=== PATIENT | female | born 1970 | race Caucasian/White ===

== ENCOUNTER 2018-06-12 13:33 | Observation (INO) ==
[~2018-06-12 13:33] MED LIST: Bupivacaine/Epinephrine PF Inj 0.5% 30 ML Vial ONE; Gelatin Size 100 Topical Foam ONE; Thrombin Topical Soln 5,000 UNIT Vial TOPICAL ONE; ceFAZolin 1 GM Premix Inj 2 GM/100 ML PIGGYBACK IV.SIG ONE; methylPREDNISolone acetate 40 MG/ML VIAL ONE
[2018-06-12] MEDS ORDERED: Chlorhexidine Gluconate 2% 1 Pack (2 Cloths) TOPICAL ONE (14:09)
[2018-06-12] MEDS ORDERED: Metoprolol Tartrate 25 MG Tablet PO SCH (14:09)
[2018-06-12] MEDS ORDERED: Sodium Chlor 0.9% Inj 500 ML IV.SIG SCH (14:15)
[2018-06-12] MEDS ORDERED: Sodium Chloride 0.9% 2 ML Flush PRN IV.FLUSH (14:21)
[2018-06-12] MEDS ORDERED: Bupivacaine Liposomal PF 1.3% Inj 20 ML Vial ONE (15:32)
[2018-06-12] MEDS ORDERED: Bisacodyl 10 MG Supp RECTAL PRN ×2 (15:39→18:57)
[2018-06-12] MEDS ORDERED: Clindamycin Inj 600 MG/4 ML Vial ONE (16:48)
[2018-06-12] MEDS ORDERED: *Meperidine Inj 25 MG/ML Vial PERIprocedural Use ONLY ONE (18:48)
--- NOTE | 2018-06-12 18:53 | XR ---
EXAM DATE: 06/12/2018 6:49 PM EST AGE/SEX: 47 years / Female INDICATIONS: Level localization for laminectomy L4,L5. CLINICAL DATA: This is the patient's initial encounter. Patient reports that signs and symptoms have been present for 1 day and indicates a pain score of Nonresponsive. MEDICAL/SURGICAL HISTORY: None. Non-responsive. COMPARISON: COMP, MR LUMBAR SPINE W/O CONTRAST, 02/05/2018. . FINDINGS: Crosstable lateral view of the lumbar spine demonstrates a radiopaque marker at the L4-5 level assumi ng 5 lumbar type vertebral bodies. There is mild grade 1 anterolisthesis of L4 on L5. Visualized vert ebral body heights are intact. CONCLUSION: 1. Intraprocedural localization, as above. Electronically signed by: Dale Benítez MD Board Certified Radiologist 06/12/2018 6:51 PM BRIAN Hanley
[2018-06-12] MEDS ORDERED: *morphine SULFATE 4 MG/ML PERIprocedure ONLY ONE ×2 (18:55→19:13)
[2018-06-12] MEDS ORDERED: fentaNYL Citrate Inj 100 MCG/2 ML Ampul ONE (18:58)
[2018-06-12] MEDS ORDERED: Morphine Inj 4 MG/ML Vial ONE (18:58)
[2018-06-12] MEDS: Sod Chloride 0.9% Inj 1,000 ML IV.CONT SCH (19:00)
[2018-06-12] MEDS ORDERED: Senna/Docusate Sodium 8.6/50 MG Tablet PO SCH (21:00)
[2018-06-12] MEDS: Senna/Docusate Sodium 8.6/50 MG Tablet PO SCH (21:21)
[2018-06-13] MEDS: Morphine Inj 4 MG/ML Vial IV.PUSH PRN ×2 (03:53→08:22)
[2018-06-13] MEDS: Sod Chloride 0.9% Inj 1,000 ML IV.CONT SCH (04:22)
[2018-06-13] MEDS ORDERED: Vancomycin Inj 1,000 MG in Sodium Chlor 0.9% Inj 250 ML IV.SIG SCH (06:00)
[2018-06-13] MEDS: Senna/Docusate Sodium 8.6/50 MG Tablet PO SCH (08:14)
[2018-06-13] MEDS ORDERED: Magnesium Oxide 400 MG Tablet PO SCH (09:00)
[2018-06-13] MEDS ORDERED: Nortriptyline 25 MG Capsule PO SCH (09:00)
[2018-06-13] MEDS ORDERED: Polyethylene Glycol 3350 17 GM Packet PO SCH (09:00)
[2018-06-13] MEDS ORDERED: DESVENLAFAXINE SUCCINATE 50 MG PO SCH (09:00)
--- NOTE | 2018-06-13 13:20 | P.PNNS ---
Subjective Interval history: June 13, 2018 Patient has been stable overnight. She complains of low back pain with radiation. She also complains of itching, and apparently has allergy to morphine, which she has been given. She appears to be quite anxious. Physical Exam Vital signs: Vital Signs 06/12/18 14:28 06/12/18 18:45 06/12/18 19:00 Temperature 97.8 F 98.1 F Pulse Rate 71 103 H 79 Respiratory Rate 16 18 19 Blood Pressure 121/83 132/86 120/75 Pulse Oximetry 97 100 99 06/12/18 19:15 06/12/18 19:20 06/12/18 19:30 Temperature 98.2 F Pulse Rate 62 66 Respiratory Rate 16 14 14 Blood Pressure 119/74 134/67 Pulse Oximetry 97 98 06/12/18 20:19 06/12/18 21:33 06/12/18 23:29 Temperature 97.5 F L 97.8 F Pulse Rate 74 58 L Respiratory Rate 16 16 Blood Pressure 126/77 114/75 Pulse Oximetry 100 99 100 06/13/18 02:47 06/13/18 08:00 Temperature 97.7 F 98.1 F Pulse Rate 90 81 Respiratory Rate 18 14 Blood Pressure 125/86 142/84 H Pulse Oximetry 98 99 Intake & Output 06/12/18 06/13/18 06/13/18 18:59 06:59 18:59 Intake Total 600 / 600 2940 / 2940 250 / 250 Output Total 50 / 50 Balance 550 / 550 2940 / 2940 250 / 250 Weight 74.8 kg 80.2 kg Intake: IV 1000 / 1000 250 / 250 NS Inj 1,000 ML @ 100 mls/hr IV 1000 / 1000 .CONT .Q10H [facility] Rx#:[id number] Vancomycin Inj 1,000 MG In NS 250 / 250 Inj 250 ML @ 250 mls/hr IV.SIG Q12H [facility] Rx#:[id number] Oral 1940 / 1940 Anesthesia Amount 600 / 600 Output: Estimated Blood Loss 50 / 50 Other: # Voids 6 Date of Last Bowel Movement 06/11/18 06/11/18 # Bowel Movements 0 Weight On Admission 74.8 kg - Routine Neurological Exam June 13, 2018 The patient is walking in the quiroz with physical therapy and then taken back to her room. She is then sitting up in a chair. A lumbosacral orthosis is in place. On neurological examination, she is awake and alert. She is oriented by 3. Cognitive functions grossly intact. Her speech is fluent. Cranial nerve testing 2 through 12 is grossly intact. There were no focal motor or sensory deficits. She is continent and ambulatory. Assessment and Plan - Plan June 13, 2018 The patient appears to be stable postoperative day #1 following a lumbar laminectomy. She has suffered an allergic reaction to parenteral morphine and I will prescribe Atarax for her. Orders have been written for her to be discharged as per Dr. Smith. She appears stable for discharge from a neurosurgical perspective.
[2018-06-13] MEDS ORDERED: Non-Formulary Drug (Hydrocodone-Acetaminophen [Hydrocodone-Acetaminophen] 1 TAB) PO PRN (13:22)
--- NOTE | 2018-06-13 15:51 | P.OP ---
Preoperative Diagnosis: Lumbar spinal stenosis Postoperative Diagnosis: Lumbar spinal stenosis Date of procedure: 06/12/18 Procedure: L4-5 hemilaminectomy, mesiofacetectomy, foraminotomy, microsurgical resection of the disk Anesthesia: EMILY Surgeon: Pillo Smith MD Video Control Engineer: Diana Lazar Pathology: none sent Operation and Findings: INDICATIONS FOR THE SURGICAL PROCEDURE MS Branham is a 47 year old female who presented with intractable mechanical back pain and clinical evidence of lower extremity radiculopathy. She was found to have significant lumbar spinal stenosis with significant mass effect on the neural structures, which correlated with the clinical symptoms. She failed maximum nonsurgical management including multiple modalities of conservative treatment as well as pain management interventions by an interventional pain specialist. A surgical decompression was indicated as a last resort. The [id number] details of the procedure, indications, alternatives, risks and potential complications were fully discussed with the patient. The patient fully understood. All the questions were answered. No guarantees were given. The patient voiced requesting the procedure and provided informed consents. The patient was offered the alternative of delaying the procedure and continuing with nonsurgical management. DETAILS OF THE SURGICAL PROCEDURE After the induction of general anesthesia, endotracheal intubation was performed. A Oliva catheter, bilateral LLUVIA hose and sequential compression devices were placed and kept throughout the procedure. The patient was positioned prone on a Isaac table over a Oj frame. All pressure points were carefully padded with eggcrate mattress. The eyes were tapped shut after ointment was applied by the anesthesiologist to prevent corneal abrasion. A Arsen hugger was placed over the exposed lower body to maintain control of the core body temperature. The lower lumbar region was prepped and draped in the usual sterile fashion. A spinal needle was placed for localization and an x- ray performed with a C-arm. A skin incision was made in the midline over the spinous processes L4-5 with a # 10 blade. Small subcutaneous bleeders were controlled with a bipolar and the dissection was carried out through the lumbar fascia exposing the spinous processes. A subperiostial dissection was performed with a Muller elevator and a Bovie over the left L4-5 spinous process lamina and facets. A microdiscectomy self-retaining retractor was placed on the incision and an x-ray was obtained with an instrument placed underneath the lamina of L4. At this point in the procedure the operating microscope was draped in the usual sterile fashion and brought to the field. The rest of the surgical procedure was performed using microsurgical dissection technique with exception of the closure. Once the level was confirmed, a decompressive laminectomy was performed at L4-5 on the left side using the TPS drill with an 4mm drill bit. A medial facetectomy was performed and the superior free border of the ligamentum flavum was dissected with a ligament dissector and removed with a thin footplate 2 mm Kerrison. The medial facetectomy was done and the L5 nerve root was identified and followed towards its exit in the foramen. Epidural veins located laterally to the dural sac were coagulated with a bipolar and incised with microscissors. Gentle medial retraction of the dural sac allowed inspection of the disc space. The patient had severe facet arthropathy with hypertrhopy of the joint facets and ligamentum flavum resulting in mass effect over the dural sac and nerve roots. In addition, there was a broad-based disc protusion, contributing to the stenosis. The annulus fibrosus of the disc was coagulated with the bipolar and incised with an 11 blade. The extruded disc was carefully dissected from the surrounding tissue and removed with pituitary forceps. Then, a microdiscectomy was carried out in the standard fashion using straight and up-biting pituitary forceps. A good decompression of the dural sac and nerve root was achieved. The exit of the nerve root was inspected for residual disc fragments and hemostasis was secured with the bipolar. The incision was irrigated with a large amount of saline solution. A Valsalva maneuver failed to show any cerebrospinal fluid leak or bleeding. The decompression was assessed again and found to be satisfactory. The incision was then closed in layers. The fascia was closed with 0 Vicryl sutures in an interrupted fashion. The superficial fascia was closed with 0 Vicryl sutures. The fascia was infiltrated with 0.5% Marcaine with epinephrine 1:100,000 dilution. The subcutaneous tissue was irrigated then closed with 0 Vicryl and 3 -0 Vicryl. The skin was closed with 4-0 running subcuticular Vicryl. A sterile dressing was applied. At the end of the procedure, the sponge, needle and instrument counts were all correct. Estimated blood loss was less than 100 cc. No blood transfusion was given. No intraoperative complications occurred. The patient received prophylactic antibiotics. The patient was then extubated and transferred to the recovery room in stable condition.
--- NOTE | 2018-06-17 10:20 | P.DS ---
Date of admission: 06/12/18 15:44 Primary care physician: UNKNOWN Brief History from admission: MS Branham is a 47 year old female who presented with intractable mechanical back pain and clinical evidence of lower extremity radiculopathy. She was found to have significant lumbar spinal stenosis with significant mass effect on the neural structures, which correlated with the clinical symptoms. She failed maximum nonsurgical management including multiple modalities of conservative treatment as well as pain management interventions by an interventional pain specialist. A surgical decompression was indicated as a last resort. DS: Summary Hospital Course: Ms. Branham underwent a L4-5 hemilaminectomy, mesiofacetectomy, foraminotomy, microsurgical resection of the disk on 06/12/18. Her surgery went well without complications and she was discharged home in stable conditions. - Time Spent with Patient Total time spent providing and/or coordinating discharge services: Less than 30 minutes - Quality: VTE Deep Vein Thrombosis/Pulmonary Embolism Present on Admission: No Results Procedures completed during hospitalization: L4-5 hemilaminectomy, mesiofacetectomy, foraminotomy, microsurgical resection of the disk - Impressions ITS Impressions Lumbar Spine X-Ray 06/12/18 00:00 CONCLUSION: 1. Intraprocedural localization, as above. Discharge Plan - Discharge Disposition Patient Disposition: Discharge Home - Discharge Condition Condition: Stable - Discharge Order Discharge Orders: Discharge Order (Routine); Ordered 06/13/18 Ordered By: Jaclyn Knight - Physicians Team Primary Care Provider: UNKNOWN, Attending Provider: Pillo Smith - Rxs /Orders / Referrals /Forms Prescriptions: Continue buspirone 15 mg Tablet 15 mg PO TID PRN (Reason: Anxiety) cetirizine 10 mg Tablet 10 mg PO DAILY desvenlafaxine succinate [Pristiq] 50 mg Tablet Extended Release 24 Hr 50 mg PO DAILY hydrocodone-acetaminophen 10-325 mg Tablet 1 tab PO QID PRN (Reason: Pain) magnesium citrate 100 mg Tablet 500 mg PO DAILY nortriptyline 25 mg Capsule 25 mg PO DAILY omeprazole 10 mg Capsule,Delayed Release(Dr/Ec) 10 mg PO DAILY polyethylene glycol 3350 [Miralax] 17 gram Powder In Packet 17 g PO DAILY Referrals: UNKNOWN, [Primary Care Provider] - See Instructions - Discharge Instructions Patient Printed Instructions: Laminectomy (DC) Additional Instructions: No Rx given at discharge. Dr. Smith told patient that he did not need to write a new pain script, due to having enough on an older one at home. Patient and both stated they have a walker at home and didn't need any DME from the hospital. - Follow up with Dr. Smith in 1 week. - Take medications as prescribed.
== END 2018-06-13 15:34 | disposition home or self-care (01) ==
LOC: HSDI 13:33 → HSDC 13:33 → N06 19:59
PROVIDERS: ADMIT Neurological Surgery; ATTEND Neurological Surgery
CPT/HCPCS: 72020; 76000; 87640; 87641; 94150; 96361; 96365; 96375; 96376; 97162; C9290; G0378; G8987; G8988; J0131; J0690; J1030; J1580; J2060; J2175; J2250; J2270; J3010; J3370; J7030; J7050; J7120; K0636; L0627